=== PATIENT | female | born 1985 | race African-American/Black ===

== ENCOUNTER 2018-03-30 18:54 | Emergency (ER) | payer MEDICARE, MEDICAID ==
[2018-03-30 19:16] LABS: Bilirubin Negative (Negative); Blood, Urine Negative (Negative); Clarity Clear (Clear); Glucose, Urine (Dipstick) Negative (Negative); Leukocyte Negative (Negative); Nitrite Negative (Negative); Protein, Urine (Dipstick) Negative (Neg-Trace)
[2018-03-30 19:18] LABS: Specific Gravity, Urine 1.029 (1.002-1.036)
[2018-03-30 19:19] LABS: Pregnancy Test - Urine (BHCG) Negative (Negative); Pregu Control Background? CLEAR/WHITE (CLR/WHITE); Pregu Control Bar Appear? YES (CONTROL BAR); Specific Gravity 1.029 (1.002-1.036)
[2018-03-30] MEDS ORDERED: Ondansetron ODT 4 MG TAB ONE (19:34)
== END 2018-03-30 20:16 | disposition home or self-care (01) ==
LOC: SCSER 18:54
DX: R11.2 Nausea with vomiting, unspecified (principal); R19.7 Diarrhea, unspecified; F90.9 Attention-deficit hyperactivity disorder, unspecified type
CPT/HCPCS: 81003; 81025; 96372; Q0162

== ENCOUNTER 2018-11-06 17:54 | Emergency (ER) | payer MEDICARE, MEDICAID ==
[2018-11-06] MEDS ORDERED: Ibuprofen 800 MG TAB ONE (18:24)
== END 2018-11-06 18:29 | disposition home or self-care (01) ==
LOC: SCSER 17:54
DX: T24.212A Burn of second degree of left thigh, initial encounter (principal); T31.0 Burns involving less than 10% of body surface; F32.9 Major depressive disorder, single episode, unspecified; F90.9 Attention-deficit hyperactivity disorder, unspecified type; Z79.899 Other long term (current) drug therapy; X10.0XXA Contact with hot drinks, initial encounter
CPT/HCPCS: 99283

== ENCOUNTER 2021-05-12 12:44 | Emergency (ER) | payer MEDICARE, MEDICAID, OTHER | END 2021-05-12 14:53 | disposition home or self-care (01) | LOC: ERS 12:44 | DX: J02.9 Acute pharyngitis, unspecified (principal) | CPT/HCPCS: 71045; 87081; 87430 ==

== ENCOUNTER 2024-11-09 15:05 | Emergency (ER) | payer OTHER | END 2024-11-09 16:29 | disposition home or self-care (01) | LOC: ERS 15:05 | DX: A08.4 Viral intestinal infection, unspecified (principal); E11.9 Type 2 diabetes mellitus without complications | CPT/HCPCS: 87428; 99283 ==